=== PATIENT | male | born 1995 | race Caucasian/White ===

== ENCOUNTER 2018-09-29 19:43 | Emergency (ER) | payer BC ==
[~2018-09-29] VITALS: Ht 172.7 cm; Wt 100.0 kg
[2018-09-29 19:54] VITALS: TEMP 98
[2018-09-29] MEDS ORDERED: FLEXERIL 1010 MG/TAB PO (20:34)
[2018-09-29] MEDS ORDERED: NORCO 325 MG-51 TAB PO (20:34)
[2018-09-29 21:20] VITALS: BP 154/81; PULSE 80
== END 2018-09-29 21:21 | disposition home or self-care (01) ==
LOC: COL.ER 19:43
DX: G89.29 Other chronic pain (principal); M54.5 Low back pain
CPT/HCPCS: J1885